=== PATIENT | female | born 1960 | race African-American/Black ===

== ENCOUNTER 2019-02-13 09:29 | Emergency (ER) | payer OTHER ==
[~2019-02-13] VITALS: Wt 78.8 kg
[2019-02-13] MEDS ORDERED: LIDOCAINE/MYLANTA 40 ML BTL PO STA (12:30)
[2019-02-13] MEDS ORDERED: SOD CHLORIDE 0.9% 1,000 ML IV STA (12:30)
[2019-02-13] MEDS ORDERED: KETOROLAC 15 MG INJ IV STA (12:30)
[2019-02-13] MEDS ORDERED: BELLADONNA/PHENOBARBITAL TAB PO STA (12:30)
[2019-02-13] MEDS ORDERED: ONDANSETRON 4 MG INJ IV STA (12:30)
--- NOTE | 2019-02-13 12:41 | ERD ---
ER Documentation Chief Complaint Chief Complaint AP SINCE MONDAY HPI 58-year-old woman complains of left lower quadrant abdominal and pelvic pain and cramping times 1 week, she states initially her stools were dark and black in color and then resolved and are normal in color for the last 3 days. She denies bright red blood per rectum, no fevers or chills, no vomiting or diarrhea, no chest pain or shortness of breath. She suspects she has an ulcer. ROS All systems reviewed and are negative except as per history of present illness. Medications Home Meds Active Scripts Docusate Sodium* (Colace*) 100 Mg Capsule, 100 MG PO BID PRN for CONSTIPATION, #15 CAP Prov:KARLA SALGUERO MD 02/13/19 Naproxen* (Naprosyn*) 500 Mg Tablet, 500 MG PO BID PRN for PAIN AND/OR INFLAMMATION, #30 TAB Prov:KARLA SALGUERO MD 02/13/19 Allergies Allergies: Coded Allergies: No Known Allergy (Unverified , 02/13/19) PMhx/Soc History of Surgery: Yes (HYSTERCTOMY) Anesthesia Reaction: No Hx Neurological Disorder: No Hx Respiratory Disorders: No Hx Cardiac Disorders: No Hx Psychiatric Problems: No Hx Miscellaneous Medical Probl: No Hx Alcohol Use: Yes Hx Substance Use: No Hx Tobacco Use: No Smoking Status: Never smoker FmHx Family History: No diabetes Physical Exam Vitals Vital Signs Date Temp Pulse Resp B/P (MAP) Pulse Ox O2 O2 Flow FiO2 Time Delivery Rate 02/13/19 72 18 102/73 100 Room Air 14:23 (83) 02/13/19 97.6 86 18 109/79 99 09:31 (89) Physical Exam GENERAL: Well-developed, well-nourished, well-hydrated, in no apparent distress, looks nontoxic in appearance HEENT: Moist mucous membranes, pink conjunctiva, no cervical spine tenderness or step-off deformities, no goiter, no jaundice or icterus, extraocular movements intact without pain. No submandibular induration, and no pharyngeal erythema NEURO: Alert and oriented 3, cranial nerves II through XII intact bilaterally, pupils equal round reactive to light, no focal deficits or facial asymmetry, sensation intact distally Strength 5/5 in upper and lower extremities bilaterally CARDIAC: Regular rate and rhythm, no murmurs rubs or gallops LUNGS: Clear bilaterally no wheezing crackles or stridor ABDOMEN: Soft nontender, no guarding, no rigidity, no rebound, no psoas sign no obturator sign. Normoactive bowel sounds SKIN: Warm and dry to touch, no abrasions, contusions, or hematomas, no lacerat ions, no ecchymosis, no target lesions, and without ulcers EXTREMITIES: No clubbing cyanosis or edema, calves are bilaterally symmetrical, no Homans sign, no popliteal cord sign. Distal pulses equal and bilateral PSYCH: Normal affect without agitation or irritability Result Diagram: 02/13/19 1248 02/13/19 1248 Results 24 hrs Laboratory Tests Test 02/13/19 12:48 White Blood Count 5.4 10^3/ul Red Blood Count 4.32 10^6/ul Hemoglobin 12.1 g/dl Hematocrit 38.1 % Mean Corpuscular Volume 88.2 fl Mean Corpuscular Hemoglobin 28.0 pg Mean Corpuscular Hemoglobin Concent 31.8 g/dl Red Cell Distribution Width 13.0 % Platelet Count 253 10^3/UL Mean Platelet Volume 11.4 fl Immature Granulocytes % 0.400 % Neutrophils % 49.7 % Lymphocytes % 38.5 % Monocytes % 7.1 % Eosinophils % 3.2 % Basophils % 1.1 % Nucleated Red Blood Cells % 0.0 /100WBC Immature Granulocytes # 0.020 10^3/ul Neutrophils # 2.7 10^3/ul Lymphocytes # 2.1 10^3/ul Monocytes # 0.4 10^3/ul Eosinophils # 0.2 10^3/ul Basophils # 0.1 10^3/ul Nucleated Red Blood Cells # 0.0 10^3/ul Prothrombin Time 12.2 Sec Prothrombin Time Ratio 1.0 INR International Normalized Ratio 0.89 Activated Partial Thromboplast Time 32.0 Sec Urine Color STRAW Urine Clarity CLEAR Urine pH 6.0 Urine Specific [place] 1.008 Urine Ketones NEGATIVE mg/dL Urine Nitrite NEGATIVE mg/dL Urine Bilirubin NEGATIVE mg/dL Urine Urobilinogen NEGATIVE mg/dL Urine Leukocyte Esterase 1+ Shivani/ul Urine Microscopic RBC 1 /HPF Urine Microscopic WBC 0 /HPF Urine Hemoglobin NEGATIVE mg/dL Urine Glucose NEGATIVE mg/dL Urine Total Protein NEGATIVE mg/dl Sodium Level 143 mmol/L Potassium Level 4.0 mmol/L Chloride Level 106 mmol/L Carbon Dioxide Level 29 mmol/L Anion Gap 8 Blood Urea Nitrogen 10 mg/dl Creatinine 0.70 mg/dl Est Glomerular Filtrat Rate mL/min > 60 mL/min Glucose Level 94 mg/dl Calcium Level 9.9 mg/dl Total Bilirubin 0.2 mg/dl Direct Bilirubin 0.00 mg/dl Indirect Bilirubin 0.2 mg/dl Aspartate Amino Transf (AST/SGOT) 25 IU/L Alanine Aminotransferase (ALT/SGPT) 17 IU/L Alkaline Phosphatase 119 IU/L Total Protein 8.1 g/dl Albumin 4.5 g/dl Globulin 3.60 g/dl Albumin/Globulin Ratio 1.25 Lipase 91 U/L Current Medications Medications Dose Sig/Bossman Start Time Status Last (Trade) Ordered Route PRN Stop Time Admin Dose Reason Admin Sodium 1,000 ml @ Q1H STAT 02/13/19 DC 02/13/19 Chloride 1,000 mls/hr IV 12:30 12:46 02/13/19 13:29 Ondansetron 4 mg ONCE STAT 02/13/19 DC 02/13/19 HCl (Zofran IV 12:30 12:46 Inj) 02/13/19 12:36 40 ml ONCE STAT 02/13/19 DC 02/13/19 Miscellaneous PO 12:30 12:46 Medication 02/13/19 12:36 (Gi Cocktail (2)) Belladonna/ 2 tab ONCE STAT 02/13/19 DC 02/13/19 Phenobarbital PO 12:30 12:46 () 02/13/19 12:36 Ketorolac 15 mg ONCE STAT 02/13/19 DC 02/13/19 Tromethamine IV 12:30 12:46 (Toradol) 02/13/19 12:36 Procedures/MDM IV line was established patient was placed on director of cardiac rehabilitation rhythm strip revealed a sinus rhythm at about 80 bpm with upright P and T waves. Patient was afebrile I administered 1 L normal saline IV, Toradol 15 mg IV, Zofran 4 mg IV, GI cocktail p.o. CT scan of the abdomen and pelvis, IMPRESSION: There is a fecal filled colon.No evidence of bowel obstruction or inflammation. There is no appendicitis. Atherosclerotic disease is present. No renal or ureteral calculi with no evidence of hydronephrosis. CBC and electrolytes were normal, liver function tests were normal, urinalysis negative for infection. Patient's pain was treated completely she is asymptomatic at this time and repeat abdominal examination performed by me prior to discharge revealed a soft nontender belly without masses guarding, or rigidity. I did tell her if her symptoms continue or worsen she may need upper endoscopy but at this point she is safe for discharge and outpatient management. Differential diagnoses considered, included but not limited to acute coronary syndrome, pulmonary embolism, aortic dissection, abdominal aortic aneurysm, sepsis, stroke, meningitis, encephalitis, pneumonia, appendicitis, cholecystitis, bowel obstruction, pyelonephritis, nephrolithiasis, cystitis, as well as metabolic, hematologic, and electrolyte abnormalities. As well as abscess, cellulitis, fractures, and dislocations. Patient feels much better at this time, and vital signs are normal, symptoms have improved. I did give strict instructions to return to the ED if symptoms continue or worsen, patient will otherwise follow-up with primary care physician. Patient understood instructions and agreed to plan. Disclaimer: Inadvertent spelling and grammatical errors are likely due to EHR/dictation software use and do not reflect on the overall quality of patient care. Also, please note that the electronic time recorded on this note does not necessarily reflect the actual time of the patient encounter. Departure Diagnosis: Primary Impression: Abdominal pain Abdominal location: lower abdomen, unspecified Qualified Codes: R10.30 - Lower abdominal pain, unspecified Condition: KARLA Myers MD Feb 13, 2019 12:41
[2019-02-13] MEDS ORDERED: NAPR-985 PO (15:40)
[2019-02-13] MEDS ORDERED: DOCU-144 PO (15:40)
[2019-02-13 16:30] VITALS: BP 112/78; PULSE 98; RESP 18
== END 2019-02-13 18:24 | disposition home or self-care (01) ==
LOC: E/R 09:29
DX: R10.32 Left lower quadrant pain (principal)
CPT/HCPCS: 36415; 74176; 80053; 81001; 83690; 85025; 85610; 85730; 96374; 96375; J1885; J2405; J7030; Z7502; Z7610